=== PATIENT | male | born 1985 | race Caucasian/White ===

== ENCOUNTER 2020-05-08 23:58 | Emergency (ER) | payer OTHER ==
[2020-05-09 00:35] VITALS: BP 146/93; PULSE 66; TEMP 97.9; BMI 30.8
[2020-05-09] MEDS ORDERED: LIDOCAINE 5% TOPICAL PATCH TP ONE (01:05)
[2020-05-09] MEDS ORDERED: ACETAMINOPHEN 500 MG TABLET (FP) PO ONE (01:05)
[2020-05-09] MEDS ORDERED: LIDOCAINE 5% TOPICAL PATCH ONE (01:32)
[2020-05-09] MEDS ORDERED: ACETAMINOPHEN 325 MG TABLET (FP) ONE (01:32)
[2020-05-09] MEDS ORDERED: LIDOCAINE PATCH REMOVAL MC SCH (22:00)
== END 2020-05-09 04:13 | disposition left against medical advice (07) ==
LOC: JER 23:58
DX: S29.011A Strain of muscle and tendon of front wall of thorax, initial encounter (principal); S13.4XXA Sprain of ligaments of cervical spine, initial encounter
CPT/HCPCS: 70450-TC; 71045-TC-FY; 72125-TC; 99285-25